=== PATIENT | male | born 2005 | race Caucasian/White ===

== ENCOUNTER 2025-02-07 04:23 | Emergency (ER) | payer OTHER ==
[~2025-02-07] VITALS: Ht 188 cm; Wt 86.3 kg
[2025-02-07 05:49] LABS: PLATELET COUNT, AUTOMATED 211 10^3/uL (150-450)
[2025-02-07 06:09] LABS: AMPHETAMINES LEVEL URINE NEGATIVE (NEGATIVE); BARBITURATES URINE NEGATIVE (NEGATIVE); BENZODIAZEPINES URINE NEGATIVE (NEGATIVE); CANNABINOIDS URINE NEGATIVE (NEGATIVE); COCAINE METABOLITE URINE NEGATIVE (NEGATIVE); METHADONE URINE NEGATIVE (NEGATIVE); OPIATES URINE NEGATIVE (NEGATIVE); PHENCYCLIDINE URINE NEGATIVE (NEGATIVE)
[2025-02-07 06:12] LABS: ETHYL ALCOHOL (ETHANOL) 0.155 % (0.000-0.010)
[2025-02-07 06:13] LABS: ALT/SGPT 20 U/L (7.0-40); AST/SGOT 23 U/L (<34); CALCIUM LEVEL 9.3 MG/DL (8.5-10.1); CARBON DIOXIDE LEVEL 27 MMOL/L (20-31); CHLORIDE LEVEL 101 MMOL/L (98-107); CREATININE FOR GFR 0.99 MG/DL (0.70-1.30); GLOMERULAR FILTRATION RATE > 90.0 (>60); POTASSIUM SERUM 4.0 MMOL/L (3.5-5.1); SALICYLATE LEVEL < 3.0 MG/DL (<30); SODIUM LEVEL 141 MMOL/L (136-145)
[2025-02-07 06:46] LABS: HIV 1&2 SCREEN NEGATIVE (NEGATIVE)
[2025-02-07] MEDS ORDERED: HOME MED LIST COMPLETE! XX SCH (09:25)
[2025-02-08 13:18] VITALS: BP 130/75; TEMP 96.3; O2SAT 99
== END 2025-02-08 13:45 | disposition home or self-care (01) ==
LOC: M ED 04:23
DX: F19.14 Other psychoactive substance abuse with psychoactive substance-induced mood disorder (principal); Z88.0 Allergy status to penicillin